=== PATIENT | female | born 1970 | race Caucasian/White ===

== ENCOUNTER 2016-07-06 01:06 | Inpatient (IN) | payer OTHER ==
[~2016-07-06] VITALS: Ht 165.1 cm; Wt 74.8 kg
[2016-07-06] VITALS (7 sets, daily range): BP systolic 124–150; BP diastolic 80–90
--- NOTE | 2016-07-06 13:42 | Operative Report ---
See Addendum Operative/Inv Procedure Report Surgery Date: 07/06/16 Name of Procedure: D&C hysteroscopy Pre-Operative Diagnosis: Post menopausal bleeding Post-Operative Diagnosis: Same and cervical polyp Estimated Blood Loss: less than 50ml Surgeon/Dust Operator: VIPUL COOPER,ELVIN Cruz Anesthesia: local monitored anesthesi Operative/Procedure Note Note: Excisional patient was taken the operating room placed supine position after adequate anesthesia patient placed in dorsolithotomy position the vagina from dorsal fashion bladder was catheterized examination under anesthesia performed at this point Thompson speculum was placed into the vagina CO2 tenaculum was placed on the Intralipid cervix a Kamila was placed and the pedicle of the polyp or mass at the cervix H this was removed with the Bovie a stitch of 0 was placed around the pedicle hemostasis was apparent a CO2 tenaculum was placed on the Intralipid cervix gentle downward traction cervix was dilated 29 Hegar to allow for the insertion hysteroscope scope was inserted atraumatically under gas hysteroscope was removed sharp curettage endometrial lining was 4 peptide curettage of the endocervical line was performed 2 specimen sent to pathology with cervical polyp total of 3 oral instrument counts were correct the patient was returned spine position awakened from anesthesia and transferred recovery room awake alert Findings: Half centimeter of either a degenerating fibroid on the pedicle at the cervix or a degenerated cervical polyp uterine lining was normal no adnexal masses otherwise normal anatomy
--- NOTE | 2016-07-06 13:47 | Operative Report ---
Operative/Inv Procedure Report Surgery Date: 07/06/16 Name of Procedure: Myomectomy exploratory laparotomy Pre-Operative Diagnosis: Fibroid Post-Operative Diagnosis: Degenerating fibroid Estimated Blood Loss: less than 50ml Surgeon/Product Design Manager: VIPUL COOPER,ELVIN Cruz Anesthesia: general endotracheal tube Operative/Procedure Note Note: Patient was taken the operating room placed supine position after adequate induction general anesthesia via endotracheal tube Dr. Dhaliwal placed stents at this point there is a surgical emergency in the childbirth center and the patient was under general anesthesia she was returned spine position the abdomen was prepped and draped so fashion on through Pfannenstiel skin incision skin was cut was carried down to rectus fascia which was cut in curvilinear fashion I direction peritoneal cavity was entered high into the abdomen patient tolerated that well's I at this point the uterus was delivered onto the field on Pitressin was injected underneath the serosa on the Bovie was used to remove the fibroid on the was reapproximated using 0 interrupted [id number] hemostasis was apparent on the cavity was not entered on the abdomen.copious amounts of warm saline were were used to assess hemostasis clear once the uterus was returned to abdominal cavity on both ovaries were normal in the anatomy was otherwise normal . Peritoneum was reapproximated 0 the fascia was reapproximated to continue sutures #1 the skin was reapproximated elaine sterile dressing was applied. The Stents were removed patient was awakened from anesthesia extubated and transferred recovery room awake alert counts correct
[2016-07-07] VITALS (12 sets, daily range): BP systolic 120–170; BP diastolic 80–96
[2016-07-07 08:59] LABS: ABSOLUTE BASOPHIL COUNT 0 /CUMM (0.0-0.2); ABSOLUTE EOSINOPHIL COUNT 0.1 /CUMM (0.0-0.7); ABSOLUTE MONOCYTE COUNT 0.7 /CUMM (0.10-0.60); BASOPHIL % 0.3 % (0.0-2.0); MEAN PLATELET VOLUME 8.7 FL (7.4-10.4); WHITE BLOOD CELL COUNT 9.7 /CUMM (4.8-10.8)
[2016-07-07 09:13] LABS: ABSOLUTE GRANULOCYTE CT 6.3 /CUMM (1.4-6.5); ABSOLUTE LYMPH COUNT 2.5 /CUMM (1.2-3.4); EOSINOPHIL % 1.1 % (0-5); GRANULOCYTE % 65.1 % (42.2-75.2); MEAN CORPUSCULAR HGB 31.2 PG (27.0-31.0); MEAN CORPUSCULAR HGB CONC 34.1 G/DL (33.0-37.0); MEAN CORPUSCULAR VOLUME 91.5 FL (81.0-99.0); PLATELET COUNT 170 /CUMM (130-400); RBC DISTRIBUTION WIDTH 12.4 % (11.5-14.5); RED BLOOD CELL CT 3.87 /CUMM (4.20-5.40)
[2016-07-07 09:37] LABS: HEMATOCRIT 35.4 % (37-47)
--- NOTE | 2016-07-07 17:38 | NUR ---
DR MCKENZIE CALLED AT [facility] 1600 TO CANCEL D/C ORDER SINCE PT WILL BE STAYING THE NIGHT AND TO ENTER CODE STATUS IN COMPUTER. PER PT, SHE IS FULL CODE. SMALL CRAFT OPERATOR LEFT MESSAGE WITH CARLOS.
[2016-07-08 07:01] VITALS: BP 160/90
--- NOTE | 2016-07-13 12:21 | Operative Report ---
Operative/Inv Procedure Report Surgery Date: 07/06/16 Name of Procedure: CYSTO: BILATERAL STENT INSERTION Pre-Operative Diagnosis: fibroids Post-Operative Diagnosis: same Estimated Blood Loss: scant Surgeon/Voice Instructor: md rosales arnold-urology Anesthesia: general endotracheal tube Specimens: ucx Complications: none Operative/Procedure Note Note: The patient was taken to the operating room and placed on the OR table in supine position. Timeout was performed, with the patient awake, to confirm identify, planned procedures, anesthesia, antibiotics and other pertinent gaviota-operative information. After adequate anesthesia, and IV antibiotics, the patient was placed in lithotomy Yellow-fin stirrups. She was then draped and prepped in the usual surgical fashion, including a vaginal prep. A 22 Trinidadian cystoscope sheath with a 30 angle lens was inserted into the bladder without significant difficulty. The bladder was thoroughly and systematically examined, and was noted to be free of tumor, free of stone, free of endometriosis. Both ureteral orifices were in their orthotopic positions with clear reflux bilaterally. Under direct visualization the left orifice was intubated with a 5 Trinidadian whistle-tip catheter, which was advanced easily into the left kidney pelvis. The right ureteral orifice was intubated with a second 5 Trinidadian ureteral whistle tip catheter, and advanced into the right renal pelvis without difficulty. For identification purposes the blue marked stent went into the left kidney and the right ureteral stent was marked red. Urine culture was obtained and sent to pathology. The cystoscope was then removed leaving both stents in proper place. An 18 Trinidadian Sanders catheter was inserted draining clear fluid and 10 mL of sterile water was then placed in the balloon. The ends ureteral stents, which protruded externally, were taped to the Sanders catheter in order to secure their position. The individual ureteral stents were then connected to their individual drainage devices. The patient tolerated the procedure well. All sponge needle and instrument count were correct at the end of this procedure. The patient was then placed in supine position with Venodyne's in place. At this point, Dr. Dickerson was able to proceed with her patient's surgery. Discharge Disposition: proceed with dr. dickerson CC: ARACELY ROSALES MD
--- NOTE | 2016-07-20 14:31 | Surgical Discharge Summary ---
Visit Information Visit Dates Admission Date: 07/06/16 Discharge Date: 07/08/16 History of Present Illness Chief Complaint: Pelvic pain Medical History Blood Transfusion Hx: No Neurological: NONE EENT: NONE Cardiovascular: hypertension Respiratory: NONE Gastrointestinal: NONE Hepatic: NONE Renal: NONE Musculoskeletal: NONE Psychiatric: NONE Endocrine: NONE Blood Disorders: NONE Cancer(s): NONE WATCHSTANDER/Reproductive: fibroid History of MRSA: No History of VRE: No History of CDIFF: No Isolation History: Standard Surgical History Pertinent Surgical History: Psychosocial History What is Your Primary Language? [place] Review of Systems: -13 point review of systems as stated in the [facility] Hospital Course Course Attending Physician: ELVIN MATTHEW MD Primary Care Physician: TRAN COOPER,[facility] Course: She was admitted for a myomectomy she did well she tolerated clear liquid diet first postoperative day patient wanted to go home she was discharged home on second postoperative day with following physical exam pleasant white female HEENT anicteric lungs clear heart S1 S1 equal to S2 abdomen soft on staple line intact extremities negative edema negative Homans Allergies: Coded Allergies: No Known Allergies (07/03/16) Disposition Summary Disposition Principal Diagnosis: Status post myomectomy Additional Diagnosis: Anemia Discharge Disposition: home or self care Discharge Instructions General Discharge Information Code Status: Full Code Patient's Diet: Regular Patient's Activity: Pelvic rest no heavy lifting greater than 15 pounds for 6 weeks Follow-Up Instructions/Appts: 1 week in my office to remove elaine
--- NOTE | 2016-08-11 18:55 | Discharge Summary ---
Visit Information Visit Dates Admission Date: 07/06/16 Discharge Date: 07/08/16 History of Present Illness Chief Complaint: Pelvic pain Medical History Blood Transfusion Hx: No Neurological: NONE EENT: NONE Cardiovascular: hypertension Respiratory: NONE Gastrointestinal: NONE Hepatic: NONE Renal: NONE Musculoskeletal: NONE Psychiatric: NONE Endocrine: NONE Blood Disorders: NONE Cancer(s): NONE CONSULTING TECHNICAL DIRECTOR/Reproductive: fibroid History of MRSA: No History of VRE: No History of CDIFF: No Isolation History: Standard Surgical History Pertinent Surgical History: Psychosocial History What is Your Primary Language? Mauritanian Review of Systems: -13 point review of systems as stated in the [facility] Hospital Course Course Attending Physician: ELVIN MATTHEW MD Primary Care Physician: TRAN COOPER,[place] Course: She was admitted for a myomectomy she did well she tolerated clear liquid diet first postoperative day patient wanted to go home she was discharged home on second postoperative day with following physical exam pleasant white female HEENT anicteric lungs clear heart S1 S1 equal to S2 abdomen soft on staple line intact extremities negative edema negative Homans Allergies: Coded Allergies: No Known Allergies (07/03/16) Disposition Summary Disposition Principal Diagnosis: Status post myomectomy Additional Diagnosis: Anemia Discharge Disposition: home or self care Discharge Instructions General Discharge Information Code Status: Full Code Patient's Diet: Regular Patient's Activity: Pelvic rest no heavy lifting greater than 15 pounds for 6 weeks Follow-Up Instructions/Appts: 1 week in my office to remove elaine DICTATED BY: ELVIN MATTHEW MD DATE/TIME DICTATED:07/20/161426 STATISTICAL MACHINE MECHANIC:FRANCESCO DATE/TIME TRANSCRIBED:07/20/161426 REPORT NUMBER:[id number] CONFIDENTIAL, DO NOT COPY WITHOUT APPROPRIATE AUTHORIZATION.
== END 2016-07-08 09:29 | DRG 519 ==
LOC: ENRESERVTM → ENRESERVDT → 2NA 01:06 → SDA 01:06 → ENPENDDIS 01:06 → DELPENDDIS 01:06 → SDA 07:00 → 2NA 14:17
PROVIDERS: ADMIT Specialist
PROC: 0UDB8ZZ Extraction of Endometrium, Via Natural or Artificial Opening Endoscopic (ICD-10-PCS; principal; 2016-07-06)
PROC: 0UB90ZZ Excision of Uterus, Open Approach (ICD-10-PCS; 2016-07-06)
PROC: 0T788DZ Dilation of Bilateral Ureters with Intraluminal Device, Via Natural or Artificial Opening Endoscopic (ICD-10-PCS; 2016-07-06)
DX: D25.9 Leiomyoma of uterus, unspecified (principal); N80.0 Endometriosis of uterus; N95.0 Postmenopausal bleeding; I10 Essential (primary) hypertension
CPT/HCPCS: 2NASP; 36415; 81001; 81025; 87086; 88305; C9399; J0131; J0694; J1170; J1630; J1650; J1885; J2405; J2765